=== PATIENT | female | born 1980 | race Caucasian/White ===

== ENCOUNTER 2020-04-21 15:43 | Emergency (ER) | payer SELFPAY ==
[~2020-04-21] VITALS: Ht 160 cm; Wt 77.7 kg
[2020-04-21 15:45] VITALS: BP 141/90
--- NOTE | 2020-04-21 16:03 | ED Upper Extremity ---
General Chief Complaint: Upper Extremity Stated Complaint: RT LITTLE FINGER INJ Nursing Triage Note: Patient states she hit a wall with her right closed fist and injured her right hand/5th finger. Swelling and bruising visible to right hand. Nursing Sepsis Screen: No Definite Risk Source: patient, RN notes reviewed Exam Limitations: no limitations History of Present Illness Date Seen by Provider: Apr 21, 2020 Time Seen by Provider: 15:50 Initial Comments This patient presents to the emergency department complaining of pain and swelling to the lateral portion of the right hand along the fifth metacarpal. Patient reportedly was upset with her [id number] decided to punch a wall so she wouldn't puncture [id number]. We'll do medical evaluation treatment is needed Onset: just prior to arrival Pain/Injury Location: right hand Method of Injury: direct blow Allergies and Home Medications Allergies Coded Allergies: No Known Drug Allergies (Unverified , 04/21/20) Patient Home Medication List Home Medication List Reviewed: Yes Review of Systems Constitutional: No no symptoms reported, No see HPI, No chills, No diaphoresis, No dizziness, No fever, No malaise, No weakness, No weight gain, No weight loss, No other EENTM: No see HPI, No no symptoms reported, No ear discharge, No hearing loss, No ear pain, No blurred vision, No double vision, No eye pain, No tearing, No vision loss, No dental problems, No hoarseness, No mouth pain, No mouth swelling, No epistaxis, No nose congestion, No nose pain, No throat pain, No throat swelling, No other Respiratory: No no symptoms reported, No see HPI, No cough, No dyspnea on exertion, No hemoptysis, No orthopnea, No phlegm, No short of breath, No stridor, No wheezing, No other Cardiovascular: No no symptoms reported, No see HPI, No chest pain, No edema, No Hx of Intervention, No palpitations, No syncope, No vascular heart diseas, No other Gastrointestinal: No RUQ, No LUQ, No RLQ, No LLQ, No no symptoms reported, No see HPI, No abdominal pain, No constipation, No diarrhea, No dysphagia, No hematemesis, No heartburn, No jaundice, No loss of appetite, No melena, No nausea, No vomiting, No other Musculoskeletal: No no symptoms reported; see HPI; No back pain, No gout; joint pain; No joint swelling, No muscle pain, No muscle stiffness, No muscle cramps, No muscle twitching, No muscle weakness, No neck pain, No other All Other Systems Reviewed Negative Unless Noted: Yes Past Sxdslmb-Elrbwm-Vpgwry Hx Patient Social History Alcohol Use: Denies Use Recreational Drug Use: No Smoking Status: Current Everyday Smoker Type Used: Cigarettes 2nd Hand Smoke Exposure: No Recent Foreign Travel: No Contact w/Someone Who Travel: No Recent Infectious Disease Expo: No Recent Hopitalizations: No Physical Abuse: No Sexual Abuse: No Mistreated: No Fear: No Seasonal Allergies Seasonal Allergies: No Past Medical History Surgeries: No Respiratory: No Cardiac: No Neurological: No Genitourinary: No Gastrointestinal: No Musculoskeletal: No Endocrine: No HEENT: No Cancer: Yes Lymphoma Did You Recieve Any Treatments: Yes What Type of Treatment Did You: Chemotherapy in remission Psychosocial: No Integumentary: No Blood Disorders: No Physical Exam Vital Signs Vital Signs - First Documented 04/21/20 15:45 Temp 37.0 Pulse 84 Resp 16 B/P (MAP) 141/90 (107) Pulse Ox 100 O2 Delivery Room Air Capillary Refill : Less Than 3 Seconds Height, Weight, BMI Height: '" Weight: lbs. oz. kg; 30.00 BMI Method: General Appearance: WD/WN, no apparent distress Cardiovascular: normal peripheral pulses, regular rate, rhythm, no edema, no gallop, no JVD, no murmur Respiratory: chest non-tender, lungs clear, normal breath sounds, no respiratory distress, no accessory muscle use Gastrointestinal: normal bowel sounds, non tender, soft, no organomegaly, no pulsatile mass, abnormal bowel sounds Hand: Right, bone tenderness, swelling Progress/Results/Core Measures Results/Orders My Orders Orders - AGUSTIN TURNER MD Hand 3 View Right (04/21/20 15:59) Vital Signs/I&O 04/21/20 15:45 Temp 37.0 Pulse 84 Resp 16 B/P (MAP) 141/90 (107) Pulse Ox 100 O2 Delivery Room Air Blood Pressure Mean: 107 Progress Progress Note : Time: 16:12 Progress Note Patient has a fracture to the distal right medical carpal at the MIP joint. No significant displacement. Patient was placed in a boxer splint by the nursing staff. Patient be referred to orthopedics in [place]. Dr. Gonzalez Rest ice and elevate hand Tylenol Motrin as needed for pain. Follow-up with orthopedics with your PCP as instructed. Departure Impression Primary Impression: Closed boxer's fracture Disposition: HOME, SELF-CARE Condition: Stable Departure-Patient Inst. Decision time for Depature: 16:14 Referrals: ELAINE GONZALEZ MD Patient Instructions: Boxer's Fracture (DC) Add. Discharge Instructions: Rest ice and elevate hand Tylenol Motrin as needed for pain. Follow-up with orthopedics with your PCP as instructed. All discharge instructions reviewed with patient and/or family. Voiced understanding. Scripts Diclofenac Sodium (Diclofenac Sodium) 75 Mg Tablet. 75 MG PO BID for 10 Days, #20 TAB 0 Refills Prov: AGUSTIN TURNER MD 04/21/20 AGUSTIN TURNER MD Apr 21, 2020 16:03
[2020-04-21] MEDS ORDERED: HYDROcodone/APAP 5 MG/325 MG (LORTAB) TAB PO ONE (16:15)
[2020-04-21] MEDS ORDERED: DICL75TA2 PO (16:15)
--- NOTE | 2020-04-21 16:22 | Diagnostic Imaging Report ---
INDICATION: Injury, hand pain. EXAMINATION: Right hand at 4:03 p.m. Three views were obtained. FINDINGS: There is a slightly comminuted and slightly displaced fracture of the head and neck of the 5th metacarpal. No other fracture or acute bony abnormality is appreciated. The soft tissues are unremarkable. IMPRESSION: There is a slightly displaced and slightly comminuted fracture of the head and neck of the 5th metacarpal. There is no acute bony abnormality noted otherwise. Dictated by: Dictated on workstation # [id number]
== END 2020-04-21 16:34 | disposition home or self-care (01) ==
LOC: ER FS 15:45
DX: S62.336A Displaced fracture of neck of fifth metacarpal bone, right hand, initial encounter for closed fracture (principal); F17.210 Nicotine dependence, cigarettes, uncomplicated; Z85.72 Personal history of non-Hodgkin lymphomas; W22.01XA Walked into wall, initial encounter
CPT/HCPCS: 29125; 73130

== ENCOUNTER 2020-04-22 23:55 | Emergency (ER) | payer SELFPAY ==
[~2020-04-22] VITALS: Ht 157.5 cm; Wt 74.9 kg
[~2020-04-22 23:55] MED LIST: DICL75TA2 PO
--- NOTE | 2020-04-23 00:08 | ED Upper Extremity ---
General Chief Complaint: Upper Extremity Stated Complaint: REPLACEMENT CAST ON RIGHT HAND NEEDED. Source: patient, RN/MD, RN notes reviewed Exam Limitations: no limitations History of Present Illness Date Seen by Provider: Apr 23, 2020 Time Seen by Provider: 00:05 Initial Comments This patient is a 39-year-old female presents to the emergency department for splint care. Patient was seen in the emergency department one day ago for a boxer's fracture to the right hand after punching a wall. Patient states that she got her splint wet and so she removed it. She comes into the emergency Depa rtment however hand resplinted. Onset: other Pain/Injury Location: right hand Allergies and Home Medications Allergies Coded Allergies: No Known Drug Allergies (Unverified , 04/21/20) Home Medications Diclofenac Sodium 75 Mg Tablet.dr, 75 MG PO BID Prescribed by: AGUSTIN TURNER on 04/21/20 [id number] Patient Home Medication List Home Medication List Reviewed: Yes Review of Systems Constitutional: No no symptoms reported; see HPI; No chills, No diaphoresis, No dizziness, No fever, No malaise, No weakness, No weight gain, No weight loss, No other EENTM: No see HPI, No no symptoms reported, No ear discharge, No hearing loss, No ear pain, No blurred vision, No double vision, No eye pain, No tearing, No vision loss, No dental problems, No hoarseness, No mouth pain, No mouth swelling, No epistaxis, No nose congestion, No nose pain, No throat pain, No throat swelling, No other Respiratory: No no symptoms reported, No see HPI, No cough, No dyspnea on exertion, No hemoptysis, No orthopnea, No phlegm, No short of breath, No s tridor, No wheezing, No other Cardiovascular: No no symptoms reported, No see HPI, No chest pain, No edema, No Hx of Intervention, No palpitations, No syncope, No vascular heart diseas, No other Gastrointestinal: No RUQ, No LUQ, No RLQ, No LLQ, No no symptoms reported, No see HPI, No abdominal pain, No constipation, No diarrhea, No dysphagia, No hematemesis, No heartburn, No jaundice, No loss of appetite, No melena, No nausea, No vomiting, No other Genitourinary: No no symptoms reported, No see HPI, No decreased output, No discharge, No dysuria, No frequency, No hematuria, No hesitancy, No incontinence, No nocturia, No pain, No other Musculoskeletal: No no symptoms reported; see HPI; No back pain, No gout, No joint pain, No joint swelling, No muscle pain, No muscle stiffness, No muscle cramps, No muscle twitching, No muscle weakness, No neck pain, No other All Other Systems Reviewed Negative Unless Noted: Yes Past Zmcnole-Qkcrdr-Jeyjbi Hx Patient Social History Type Used: Cigarettes 2nd Hand Smoke Exposure: No Recent Foreign Travel: No Contact w/Someone Who Travel: No Recent Hopitalizations: No Seasonal Allergies Seasonal Allergies: No Past Medical History Surgeries: No Respiratory: No Cardiac: No Neurological: No Genitourinary: No Gastrointestinal: No Musculoskeletal: No Endocrine: No HEENT: No Cancer: Yes Lymphoma Did You Recieve Any Treatments: Yes What Type of Treatment Did You: Chemotherapy Psychosocial: No Integumentary: No Blood Disorders: No Physical Exam Vital Signs Capillary Refill : Height, Weight, BMI Height: '" Weight: lbs. oz. kg; 30.00 BMI Method: General Appearance: WD/WN, no apparent distress Cardiovascular: normal peripheral pulses, regular rate, rhythm, no edema, no gallop, no JVD, no murmur Respiratory: chest non-tender, lungs clear, normal breath sounds, no respiratory distress, no accessory muscle use Gastrointestinal: normal bowel sounds, non tender, soft, no organomegaly, no pulsatile mass, abnormal bowel sounds Hand: bone tenderness, ecchymosis, swelling (from previous injury 1 day ago) Progress/Results/Core Measures Progress Progress Note : Time: 00:06 Progress Note Nursing staff will re-splint patient's right hand. Keep hand dry splint in place rest ice and elevation. Tylenol Motrin as needed for pain. Follow-up with primary care physician in 2-3 days as needed. Departure Impression Primary Impression: Encounter for medical screening examination Additional Impressions: Fracture of right hand Cast discomfort Disposition: 01 HOME, SELF-CARE Condition: Stable Departure-Patient Inst. Decision time for Depature: 00:08 Referrals: NO,LOCAL PHYSICIAN (PCP) Primary Care Physician Patient Instructions: Hand Fracture (DC) Add. Discharge Instructions: Keep hand dry splint in place rest ice and elevation. Tylenol Motrin as needed for pain. Follow-up with primary care physician in 2-3 days as needed. All discharge instructions reviewed with patient and/or family. Voiced understanding. AGUSTIN TURNER MD Apr 23, 2020 00:08
[2020-04-23 00:13] VITALS: BP 122/74
== END 2020-04-23 00:11 | disposition home or self-care (01) ==
LOC: EDUNIT# 23:55 → ER FS 23:58
DX: S62.336A Displaced fracture of neck of fifth metacarpal bone, right hand, initial encounter for closed fracture (principal); Z46.89 Encounter for fitting and adjustment of other specified devices; Z85.72 Personal history of non-Hodgkin lymphomas; W22.01XA Walked into wall, initial encounter
CPT/HCPCS: 99282